=== PATIENT | female | born 1955 | race Hispanic/Latino ===

== ENCOUNTER → 2024-08-06 | Outpatient (CLI) | payer OTHER, MEDICARE ==
[~2024-08-06] MED LIST: DRON400T7 PO; EMPA10TA PO; FAMO20TA8 PO; ISOS30TA92 PO; VALS80TA30 PO
[2024-08-06 16:36] LABS: CREATININE 1.6 mg/dL (0.5-1.0); POTASSIUM 4.7 mmol/L (3.5-5.1)
== END | disposition home or self-care (01) ==
LOC: LAB 15:41
PROVIDERS: ATTEND Internal Medicine Cardiovascular Disease
DX: N17.9 Acute kidney failure, unspecified (principal)
CPT/HCPCS: 36415; 80048